=== PATIENT | male | born 1995 | race Caucasian/White ===

== ENCOUNTER 2022-07-01 03:09 | Emergency (ER) | payer SELFPAY ==
[~2022-07-01] VITALS: Ht 167.6 cm; Wt 64.0 kg
[2022-07-01] MEDS ORDERED: LORAZEPAM 2MG/ML CPJ IV ONE (04:45)
[2022-07-01 05:16] LABS: CHLORIDE 108 mEq/L (98-107)
[2022-07-01 05:57] LABS: BASOPHILS % 0.4 % (0.0-2.0); EOSINOPHILS % 1.2 % (0.0-5.0); HEMATOCRIT. 47.4 % (42.0-52.0); HEMOGLOBIN. 16.5 g/dL (14.0-18.0); LYMPHOCYTES % 29.5 % (20.0-50.0); MEAN CORPUSCULAR HEMOGLOBIN 32.1 pg (28.0-32.0); MEAN CORPUSCULAR VOLUME 92.3 fL (80.0-94.0); MEAN PLATELET VOLUME 10.2 fl (7.4-10.4); MONOCYTES % 12.4 % (2.0-8.0); NEUTROPHILS % 56.5 % (40.0-76.0); PLATELET 222 x1000/uL (130-400); RED BLOOD CELL COUNT 5.13 mill/uL (4.7-6.1); RED CELL DISTRIBUTION WIDTH 12.7 % (11.6-14.6)
[2022-07-01 06:00] VITALS: BP 134/95
[2022-07-01] MEDS ORDERED: ALPR1TAB2 MT (06:03)
== END 2022-07-01 06:24 | disposition home or self-care (01) ==
LOC: ER 03:09
DX: F41.9 Anxiety disorder, unspecified (principal); R06.02 Shortness of breath
CPT/HCPCS: 36415; 80048; 85025; 93005; 96374; 99284; J2060

== ENCOUNTER 2022-07-12 02:04 | Emergency (ER) | payer SELFPAY ==
[~2022-07-12] VITALS: Ht 170.2 cm; Wt 68.0 kg
[~2022-07-12 02:04] MED LIST: ALPR1TAB2 MT
[2022-07-12 02:09] VITALS: BP 149/98
[2022-07-12] MEDS ORDERED: ALPRAZOLAM 0.5 MG TABLET PO ONE (03:00)
== END 2022-07-12 03:30 | disposition home or self-care (01) ==
LOC: ER 02:04
DX: F41.9 Anxiety disorder, unspecified (principal); F14.10 Cocaine abuse, uncomplicated
CPT/HCPCS: 93005; 99283